=== PATIENT | male | born 1950 | race Caucasian/White ===

== ENCOUNTER 2019-06-17 16:12 | Outpatient (CLI) | payer MEDICARE, OTHER ==
--- NOTE | 2019-06-17 17:35 | Diagnostic Imaging Report ---
PATIENT MR#: [id number] PATIENT PATIENT NAME: FRANCISCO LEWIS DATE OF : 1950 REFERRING PHYSICIAN: Junior Wei EXAM DATE: 06/17/2019 ACCESSION NUMBER: [id number] EXAM DESCRIPTION: CHEST 2VIEW HISTORY: PRECORDIAL CHEST PAIN AND COUGH. COMPARISON: None provided. CHEST RADIOGRAPH, FRONTAL AND LATERAL: Upper mediastinum: Not widened. Atherosclerotic calcification of the aortic arch. Heart: No cardiomegaly. Lungs: No lobar infiltrate, pulmonary edema, pneumothorax or significant effusion. 3 mm density super imposed over the right lung apex may represent a calcified granuloma versus superimposition of skeletal shadows. Skeleton: Mild thoracic dextrocurvature. IMPRESSION: No acute thoracic process. Read by: Dr. Jaime Rogers Transcribed by: Jaime Rogers Transcribed Date: 06/17/2019 5:34:55 PM Electronically signed by: Dr. Jaime Rogers Date signed: 06/17/2019 5:34:55 PM
== END 2019-06-17 16:22 ==
LOC: RAD 16:12
PROVIDERS: ATTEND Family Medicine
DX: R07.2 Precordial pain (principal)
CPT/HCPCS: 71046

== ENCOUNTER 2019-06-18 10:54 | Outpatient (CLI) | payer MEDICARE, OTHER ==
[2019-06-18 11:39] LABS: BASOPHILS % 0.5 % (0.0-1.5); NEUTROPHILS # 3.3 # k/uL (1.4-7.7)
[2019-06-18 12:16] LABS: HDL 38 mg/dL (>40); eGFR (Non-African) > 60
== END 2019-06-18 10:59 ==
LOC: LAB 10:54
PROVIDERS: ATTEND Family Medicine
DX: R07.2 Precordial pain (principal); Z13.220 Encounter for screening for lipoid disorders; I10 Essential (primary) hypertension
CPT/HCPCS: 36415; 80053; 80061; 85025; 93005